=== PATIENT | female | born 1995 | race Caucasian/White ===

== ENCOUNTER 2017-02-10 16:25 | Emergency (ER) | payer SELFPAY ==
[~2017-02-10] VITALS: Ht 167.6 cm; Wt 75.8 kg
[2017-02-10 16:44] VITALS: BP 95/50
--- NOTE | 2017-02-10 16:44 | NUR ---
AFTER TRIAGE, FATHER ASK IF PT CAN BE SEEN RIGHT AWAY, DR ODONNELL NOTIFIED OF S/S AND V/S BUT NO BED AVAILABLE NOTIFIED OF PT'S INTENT TO LEAVE, OK WITH DR ODONNELL; PT LWBS BY AT [id number]
== END 2017-02-10 16:44 | disposition left against medical advice (07) ==
LOC: MED 16:25
DX: R10.9 Unspecified abdominal pain (principal); R11.2 Nausea with vomiting, unspecified; Z53.21 Procedure and treatment not carried out due to patient leaving prior to being seen by health care provider